=== PATIENT | female | born 2000 | race Caucasian/White ===

== ENCOUNTER 2019-09-19 09:42 | Emergency (ER) | payer OTHER ==
[2019-09-19 09:49] VITALS: BP 126/86; PULSE 94; TEMP 98.7; BMI 17.2
[2019-09-19] MEDS ORDERED: IBUPROFEN 600 MG TABLET (FP) PO ONE (09:54)
[2019-09-19] MEDS ORDERED: ACETAMINOPHEN 325 MG TABLET (FP) PO ONE (09:55)
--- NOTE | 2019-09-19 10:06 | PDOC ---
History of Present Illness - General Chief Complaint: Pain Stated Complaint: RT ARM PAIN Time Seen by Provider: 09/19/19 09:48 History Source: Patient Exam Limitations: No Limitations - History of Present Illness Initial Comments: Tyrone is a 19 yo F who denies having any pmh who presents to the [place] ER with 12 hours of right elbow pain. She states she was well yesterday until 4 pm when she went swimming for 2 hours. After she got out of the pool she noticed something felt uncomfortable in her right elbow. She didn't think much of it but then it woke her up from sleep and got worse this morning so decided to come into the hospital for evaluation. Here in the ER she rates her pain as 7/10 and states she has a hard time extending her arm to 180 degrees. She denies pain at rest, pain only comes on when she tries to extend her arm. States pain is reproducible when she pushed on the top of her elbow. She is concerned bc she is R handed dominant and wants to make sure she doesn't have a fracture. She has not taken any medications for the arm pain. She requests to be given a sling because she states her arm feels better when she flexes her elbow 90 degrees. Denies any issues with her shoulder or wrist. Denies fevers, chills, rashes. Denies trauma to elbow. Denies prior elbow injuries. LMP: 09/04 - 2 weeks prior PCP: Doesn't remember name - at [facility] PSH: None reported Allergies: NKA, NKDA Social Hx: Denies smoking, drinking, or other substance abuse Past History - Medical History Allergies/Adverse Reactions: Allergies Allergy/AdvReac Type Severity Reaction Status Date / Time No Known Allergies Allergy Verified 12/11/12 00:06 Home Medications: Ambulatory Orders Levonorgestrel-Ethin Estradiol [Aviane] 1 each PO DAILY 09/19/19 Asthma: Yes COPD: No - Immunization History Td Vaccination: Yes Immunization Up to Date: Yes - Psycho-Social/Smoking History Smoking Status: No Smoking History: Never smoked Have you smoked in the past 12 months: No Number of Cigarettes Smoked Daily: 0 Information on smoking cessation initiated: No - Substance Abuse Hx (Audit-C & DAST Scrn) How often the patient has a drink containing alcohol: Monthly or less Number of drinks the patient has on a typical day: 1 or 2 How often the patient has six or more drinks on one occasion: Less than monthly Score: In Men: 4 or > Positive; In Women: 3 or > Positive: 2 Screen Result (Pos requires Nsg. Audit-10AR): Negative In the last yr the pt used illegal drug/Rx for NonMed reason: No Score: Yes response is considered Positive: 0 Screen Result (Positive result requires Nsg. DAST-10): Negative Review of Systems - Review of Systems Able to Perform ROS?: Yes Comments:: CONSTITUTIONAL: Absent: fever, no chills, no fatigue EYES: Absent: visual changes ENT: Absent: ear pain, no sore throat CARDIOVASCULAR: Absent: chest pain, no palpitations RESPIRATORY: Absent: cough, no SOB GI: Absent: abdominal pain, no nausea, no vomiting, no constipation, no diarrhea GENITOURINARY: Absent: dysuria, no frequency, no hematuria MUSKULOSKELETAL: Present: Arthralgia Absent: back pain, no myalgia SKIN: Absent: rash NEURO: Absent: headache *Physical Exam - Vital Signs Last Vital Signs Temp Pulse Resp BP Pulse Ox 98.7 F 94 H 20 126/86 97 09/19/19 09:43 09/19/19 09:43 09/19/19 09:43 09/19/19 09:43 09/19/19 09:43 - Physical Exam GENERAL: Well-appearing, well-nourished. No apparent distress. HEENT: Normocephalic, atraumatic. PERRL, EOM intact. CARDIOVASCULAR: Normal S1, S2. Regular rate and rhythm. PULMONARY: No evidence of respiratory distress. Lungs clear to auscultation bilaterally. No wheezing, rales or rhonchi. ABDOMEN: Soft, non-distended, non-tender. RIGHT ARM: - Appear normal externally. ELBOW: Appears normal externally. Full passive ROM on flexion. When trying to extend the arm to 180 degrees the patient exhibits pain. She has a hard time allowing me to fully extend the arm. There are no palpable elbow abnormalities. There is Tenderness to palpation in the anteromedial and anterolateral aspects of the elbow. Minimal TTP around the posterior elbow as well. - Shoulder: Full strength on ABD and ADDuction, full sensation and complete ROM - Wrist: Full strength on extension and flexion, 2+ radial and ulnar pulses EXTREMITIES: Normal ROM in other 3 extremities extremities. No gross deformities. SKIN: Warm, dry. No rash NEUROLOGICAL: No focal neurological deficits. ED Treatment Course - RADIOLOGY Radiology Studies Ordered: Category Date Time Status ELBOW-RIGHT [RAD] Stat Radiology 09/19/19 09:54 Ordered Radiograph Interpretation: Right Elbow: Pain. Decreased range of motion. There is no history of trauma given. 3 views of the right elbow reveal no sign of fracture or subluxation and no sign of blastic or lytic changes. Swelling, foreign body or soft tissue air is not seen. Posterior fat pad elevation is not visualized. Medical Decision Making - Medical Decision Making Tyrone is a 19 yo F who denies having any pmh who presents to the [place] ER with 12 hours of right elbow pain. She states she was well yesterday until 4 pm when she went swimming for 2 hours. After she got out of the pool she noticed something felt uncomfortable in her right elbow. She didn't think much of it but then it woke her up from sleep and got worse this morning so decided to come into the hospital for evaluation. Here in the ER she rates her pain as 7/10 and states she has a hard time extending her arm to 180 degrees. She denies pain at rest, pain only comes on when she tries to extend her arm. States pain is reproducible when she pushed on the top of her elbow. She is concerned bc she is R handed dominant and wants to make sure she doesn't have a fracture. She has not taken any medications for the arm pain. She requests to be given a sling because she states her arm feels better when she flexes her elbow 90 degrees. Vital Signs Temp Pulse Resp BP Pulse Ox 98.7 F 94 H 20 126/86 97 09/19/19 09:43 09/19/19 09:43 09/19/19 09:43 09/19/19 09:43 09/19/19 09:43 DDx IBNLT: Elbow sprain, elbow strain, bursitis, less likely fracture or dislocation Plan: XR, analgesia, ICE, Charles wrap, sling, re-assess, likely DC with Ortho fu of pain persists XR: Right Elbow: Pain. Decreased range of motion. 3 views of the right elbow reveal no sign of fracture or subluxation and no sign of blastic or lytic rafael nges. Swelling, foreign body or soft tissue air is not seen. Posterior fat pad elevation is not visualized. re-assessment: Patient feeling better after tylenol/motrin and comfortable in sling with CHARLES wrap and ice. States she will follow up with ortho if symptoms persist. The patient appears clinically sober, is A&O x4, and appears to be capable and have capacity to make reasonable decisions. The patient states they are currently in the emergency department, knows who the president is, states the correct time, correct day, and correct month. The patient is ambulatory in ER and has walked around the nursing station multiple times with a straight gait, and is not ataxic. Tolerating PO well, ate a sandwich and drank juice. Denies having any SI or HI. Patient states will not be driving home, taking an uber. I discussed the physical exam findings, ancillary test results and final diagnoses with the patient. I answered all of the patient's questions. The patient was satisfied with the care received and felt comfortable with the discharge plan and treatment plan. The patient will call their primary care physician within 24 hours to arrange follow-up and will return to the Emergency Department with any new, persistent or worsening symptoms. Dispo: Home with Ortho Fu Please note, this clinical encounter is taking place during a federal and state health care emergency attributable to the novel Joshua Virus pandemic. The Undercover Operator of the Department of Health and Human Services has declared, pursuant to the Public Health Service Act 319F-3 (42 U.S.C. 247d-6d), that a covered persons activities related to medical countermeasures against COVID-19 will be immune from liability under Federal and State law. Discharge - Discharge Information Problems reviewed: Yes Clinical Impression/Diagnosis: Strain of right elbow Qualifiers: Encounter type: initial encounter Qualified Code(s): S46.911A - Strain of unspecified muscle, fascia and tendon at shoulder and upper arm level, right arm, initial encounter Condition: Stable Disposition: HOME - Admission No - Follow up/Referral Referrals: Tone Nguyễn MD [Staff Physician] - - Patient Discharge Instructions Patient Printed Discharge Instructions: DI for Elbow Sprain Additional Instructions: Activity as tolerated, avoiding heavy lifting and complete rest. Stay hydrated. Ibuprofen 400-600 mg every 8 hours as needed for pain. Ice the affected areas for 20 minutes every 3-4 hours to reduce swelling. An x-ray today shows no abnormalities. The pain is likely due to a strain of the soft tissues (muscles, ligaments, tendons) in the elbow. You should follow up with an orthopedic as needed regarding today's emergency department visit. Return to the emergency department for any new or concerning symptoms, particularly persistent or worsening pain, severe swelling or discoloration, numbness/weakness, fever/chills. Print Language: MONGOLIAN - Post Discharge Activity
[2019-09-19] MEDS ORDERED: ACETAMINOPHEN 325 MG TABLET (FP) ONE (10:16)
[2019-09-19] MEDS ORDERED: IBUPROFEN 400 MG TABLET (FP) PO ONE (10:16)
--- NOTE | 2019-09-19 10:37 | PDOC ---
Attending Attestation - Resident Resident Name: Bogdan Ba - ED Attending Attestation I have performed the following: I have examined & evaluated the patient, The case was reviewed & discussed with the resident, I agree w/resident's findings & plan - HPI HPI: 09/19/19 10:32 Healthy 19-year-old female with atraumatic right elbow pain without motor or sensory deficit, began yesterday, progressively worsening. Worst pain with elbow extension, no other injuries or complaints. Did not take any medications prior to arrival. - Physicial Exam PE: 09/19/19 10:32 Vital signs stable Right elbow without effusion or swelling, near full range of motion slightly limited by pain at full extension, but able to fully extend with passive range of motion. No focal bony tenderness or deformity, full flexion/extension strength, 5 out of 5 flexion/extension of wrist and hand, sensation intact distally, vascular intact distally. Full pronator and supination - Medical Decision Making 09/19/19 10:33 Healthy 19-year-old female with atraumatic right elbow strain, neurovascular intact, no other complaints. Rule out fracture. X-ray shows no fracture or dislocation or lytic lesions Given Tylenol and Motrin Counseled regarding normal activity and avoidance of extreme strain for complete rest Agrees with plan understands return criteria Discharge - Discharge Information Problems reviewed: Yes Clinical Impression/Diagnosis: Strain of right elbow Qualifiers: Encounter type: initial encounter Qualified Code(s): S46.911A - Strain of unspecified muscle, fascia and tendon at shoulder and upper arm level, right arm, initial encounter Condition: Stable Disposition: HOME - Follow up/Referral Referrals: Tone Nguyễn MD [Staff Physician] - - Patient Discharge Instructions Patient Printed Discharge Instructions: DI for Elbow Sprain Additional Instructions: Activity as tolerated, avoiding heavy lifting and complete rest. Stay hydrated. Ibuprofen 400-600 mg every 8 hours as needed for pain. Ice the affected areas for 20 minutes every 3-4 hours to reduce swelling. An x-ray today shows no abnormalities. The pain is likely due to a strain of the soft tissues (muscles, ligaments, tendons) in the elbow. You should follow up with an orthopedic as needed regarding today's emergency department visit. Return to the emergency department for any new or concerning symptoms, particularly persistent or worsening pain, severe swelling or discoloration, numbness/weakness, fever/chills. - Post Discharge Activity
== END 2019-09-19 10:51 | disposition home or self-care (01) ==
LOC: FER 09:42
DX: S46.911A Strain of unspecified muscle, fascia and tendon at shoulder and upper arm level, right arm, initial encounter (principal)
CPT/HCPCS: 73070-TC-RT-FY; 99284-25